=== PATIENT | female | born 2000 | race African-American/Black ===

== ENCOUNTER 2022-12-02 23:28 | Emergency (ER) | payer BC, MEDICAID ==
[~2022-12-02] VITALS: Ht 170.2 cm; Wt 64.0 kg
[2022-12-02 23:54] VITALS: O2SAT 99
[2022-12-03] MEDS ORDERED: KETOROLAC 60MG/2ML VIAL IM ONE (01:00)
[2022-12-03 01:49] VITALS: BP 111/63
[2022-12-03 02:56] VITALS: PULSE 106; RESP 16; TEMP 98.2
== END 2022-12-03 03:00 | disposition home or self-care (01) ==
LOC: ER 23:28
DX: S83.91XA Sprain of unspecified site of right knee, initial encounter (principal); X50.9XXA Other and unspecified overexertion or strenuous movements or postures, initial encounter; Y93.89 Activity, other specified; Y92.89 Other specified places as the place of occurrence of the external cause; Y99.8 Other external cause status
CPT/HCPCS: 81025; 99283; 73562; 96372; J1885; Z7610